=== PATIENT | male | born 1950 | race Caucasian/White ===

== ENCOUNTER 2016-09-25 13:51 | Emergency (ER) | payer OTHER ==
[~2016-09-25] VITALS: Ht 177.8 cm; Wt 105.2 kg
[~2016-09-25 13:51] MED LIST: ACCUPRIL40 MG PO; ASPIR 8181 M1; KEFLEX500 MG PO; LOTENSIN20 MG PO; PROPRANOLOL HCL20 MG PO; [UNRECOGNIZED DRUG - REMARK]
[2016-09-25] MEDS ORDERED: ZOFRAN4 MG PO (16:11)
[2016-09-25] MEDS ORDERED: BENADRYL50 MG PO (16:11)
[2016-09-25] MEDS ORDERED: PREDNISONE10 M1 PO (16:11)
[2016-09-25 16:34] VITALS: BP 138/70
== END 2016-09-25 16:36 | disposition home or self-care (01) ==
LOC: EME 13:51
DX: R42 Dizziness and giddiness (principal); R11.0 Nausea; R19.7 Diarrhea, unspecified; T36.0X5A Adverse effect of penicillins, initial encounter; Z79.82 Long term (current) use of aspirin; Z87.891 Personal history of nicotine dependence
CPT/HCPCS: 99281; 99284; J2405; J2930; J7030